=== PATIENT | female | born 1975 | race Caucasian/White ===

== ENCOUNTER 2021-08-08 12:48 | Inpatient (IN) | payer OTHER ==
[2021-08-08 13:46] VITALS: BMI 48.6
[2021-08-08] MEDS ORDERED: BISMUTH SUBSALICYLATE 262 MG/15 ML BTL PO PRN (14:16)
[2021-08-08] MEDS ORDERED: ONDANSETRON *ODT* 4 MG TABLET SL PRN (14:16)
[2021-08-08] MEDS ORDERED: DICYCLOMINE HCL 10 MG CAPSULE PO PRN (14:16)
[2021-08-08] MEDS ORDERED: MAGNESIUM CITRATE 300 ML BOTTLE PO PRN (14:16)
[2021-08-08] MEDS ORDERED: ACETAMINOPHEN 325 MG TABLET (FP) PO PRN (14:16)
[2021-08-08] MEDS ORDERED: MAGNESIUM HYDROX 2400MG/30ML ORAL SUSPENSION 30 ML CUP PO PRN (14:16)
[2021-08-08] MEDS ORDERED: LOPERAMIDE HCL 2 MG CAPSULE PO PRN (14:16)
[2021-08-08] MEDS ORDERED: MAG HYDROX/AL HYDROX/SIMETH 30 ML UNIT-DOSE CUP PO PRN (14:16)
[2021-08-08] MEDS ORDERED: IBUPROFEN 400 MG TABLET (FP) PO PRN (14:16)
[2021-08-08] MEDS ORDERED: BENZOCAINE/MENTHOL (CHLORASEPTIC ) LOZENGE MM PRN (14:16)
[2021-08-08 17:32] LABS: HEMOGLOBIN 12.8 GM/dL (10.7-15.3); MCH 30.7 pg (25.7-33.7); MCHC 33.7 g/dl (32.0-36.0); MEAN CELL VOLUME 91.1 fl (80-96); MEAN PLT VOLUME 9.6 fl (7.5-11.1); PLATELET COUNT 120 10^3/uL (134-434); RBC 4.17 M/mm3 (3.60-5.2); RDW 13.7 % (11.6-15.6); WHITE BLOOD COUNT 4.9 K/mm3 (4.0-10.0)
[2021-08-08 17:45] LABS: CALCIUM 8.9 mg/dL (8.5-10.1)
[2021-08-08 17:46] LABS: BLOOD UREA NITROGEN 14.2 mg/dL (7-18)
[2021-08-08 17:49] LABS: CREATININE 0.6 mg/dL (0.55-1.3)
[2021-08-08 17:50] LABS: BILIRUBIN,TOTAL 0.5 mg/dL (0.2-1); TOT PROT 7.3 g/dl (6.4-8.2)
[2021-08-08] MEDS: diazePAM 5 MG TABLET PO SCH ×2 (17:53→22:23)
[2021-08-08] MEDS: hydrOXYzine PAMOATE 25 MG CAPSULE (FP) PO SCH ×2 (17:53→22:23)
[2021-08-08] MEDS: PRENATAL VITAMINS W/ FOLIC ACID TABLET (FP) PO SCH (17:59)
[2021-08-08] MEDS: MELATONIN 5 MG TABLETS PO SCH (22:23)
[2021-08-08] MEDS: THIAMINE HCL 100 MG TABLET (FP) PO SCH (22:23)
[2021-08-08] MEDS: ACETAMINOPHEN 325 MG TABLET (FP) PO PRN (22:24)
[2021-08-08] MEDS ORDERED: GABAPENTIN 300 MG CAPSULE PO ONE (22:51)
[2021-08-09] MEDS: metFORMIN HCL 500 MG TABLET (FP) PO SCH ×2 (06:51→17:46)
[2021-08-09] MEDS: diazePAM 5 MG TABLET PO SCH ×4 (06:51→22:06)
[2021-08-09] MEDS: hydrOXYzine PAMOATE 25 MG CAPSULE (FP) PO SCH ×5 (06:51→22:05)
[2021-08-09] MEDS: PRENATAL VITAMINS W/ FOLIC ACID TABLET (FP) PO SCH (10:35)
[2021-08-09] MEDS: ACETAMINOPHEN 325 MG TABLET (FP) PO PRN (10:37)
[2021-08-09] MEDS: ATORVASTATIN CA 10 MG TABLET (FP) PO SCH (22:05)
[2021-08-09] MEDS: MELATONIN 5 MG TABLETS PO SCH (22:05)
[2021-08-09] MEDS: THIAMINE HCL 100 MG TABLET (FP) PO SCH (22:05)
[2021-08-09] MEDS: IBUPROFEN 600 MG TABLET (FP) PO PRN (22:08)
[2021-08-10] MEDS: hydrOXYzine PAMOATE 25 MG CAPSULE (FP) PO SCH ×5 (05:49→22:35)
[2021-08-10] MEDS: diazePAM 5 MG TABLET PO SCH ×3 (05:50→22:36)
[2021-08-10] MEDS: metFORMIN HCL 500 MG TABLET (FP) PO SCH ×2 (07:19→18:06)
[2021-08-10] MEDS: METHOCARBAMOL 500 MG TABLET PO PRN ×2 (10:05→18:07)
[2021-08-10] MEDS: PRENATAL VITAMINS W/ FOLIC ACID TABLET (FP) PO SCH (10:05)
[2021-08-10] MEDS: diazePAM 5 MG TABLET PO PRN ×2 (10:07→18:06)
[2021-08-10] MEDS: ACETAMINOPHEN 325 MG TABLET (FP) PO PRN ×2 (10:09→22:37)
[2021-08-10] MEDS ORDERED: GABAPENTIN 300 MG CAPSULE PO SCH (15:15)
[2021-08-10] MEDS: MELATONIN 5 MG TABLETS PO SCH (22:35)
[2021-08-10] MEDS: GABAPENTIN 300 MG CAPSULE PO SCH (22:36)
[2021-08-10] MEDS: ATORVASTATIN CA 10 MG TABLET (FP) PO SCH (22:36)
[2021-08-10] MEDS: THIAMINE HCL 100 MG TABLET (FP) PO SCH (22:36)
[2021-08-11] MEDS: metFORMIN HCL 500 MG TABLET (FP) PO SCH ×2 (06:31→17:43)
[2021-08-11] MEDS: GABAPENTIN 300 MG CAPSULE PO SCH ×3 (06:31→22:21)
[2021-08-11] MEDS: hydrOXYzine PAMOATE 25 MG CAPSULE (FP) PO SCH ×5 (06:31→22:21)
[2021-08-11] MEDS: diazePAM 5 MG TABLET PO SCH ×2 (06:31→17:44)
[2021-08-11] MEDS: ACETAMINOPHEN 325 MG TABLET (FP) PO PRN ×2 (08:08→22:23)
[2021-08-11] MEDS: METHOCARBAMOL 500 MG TABLET PO PRN (10:05)
[2021-08-11] MEDS: diazePAM 5 MG TABLET PO PRN (10:05)
[2021-08-11] MEDS: PRENATAL VITAMINS W/ FOLIC ACID TABLET (FP) PO SCH (10:05)
[2021-08-11] MEDS: THIAMINE HCL 100 MG TABLET (FP) PO SCH (22:21)
[2021-08-11] MEDS: MELATONIN 5 MG TABLETS PO SCH (22:21)
[2021-08-11] MEDS: ATORVASTATIN CA 10 MG TABLET (FP) PO SCH (22:21)
[2021-08-12] MEDS ORDERED: diazePAM 5 MG TABLET PO ONE (06:00)
[2021-08-12] MEDS: GABAPENTIN 300 MG CAPSULE PO SCH (06:02)
[2021-08-12] MEDS: hydrOXYzine PAMOATE 25 MG CAPSULE (FP) PO SCH ×2 (06:02→10:32)
[2021-08-12] MEDS: ACETAMINOPHEN 325 MG TABLET (FP) PO PRN (06:06)
[2021-08-12] MEDS: metFORMIN HCL 500 MG TABLET (FP) PO SCH (06:08)
[2021-08-12 09:40] VITALS: TEMP 97.7
[2021-08-12] MEDS: IBUPROFEN 600 MG TABLET (FP) PO PRN (10:31)
[2021-08-12] MEDS: PRENATAL VITAMINS W/ FOLIC ACID TABLET (FP) PO SCH (10:31)
[2021-08-12 12:59] VITALS: BP 92/59; PULSE 90
== END 2021-08-12 12:45 | disposition home or self-care (01) | DRG 775 ==
LOC: YASAS 12:48 → Y3N 15:02 → Y6N 08-09 17:49
PROVIDERS: ADMIT Allergy & Immunology; ATTEND Surgery
PROC: HZ2ZZZZ Detoxification Services for Substance Abuse Treatment (ICD-10-PCS; principal; 2021-08-08)
DX: F10.230 Alcohol dependence with withdrawal, uncomplicated (principal); F13.232 Sedative, hypnotic or anxiolytic dependence with withdrawal with perceptual disturbance; F19.24 Other psychoactive substance dependence with psychoactive substance-induced mood disorder; F32.A Depression, unspecified; E11.9 Type 2 diabetes mellitus without complications; E78.5 Hyperlipidemia, unspecified; M19.90 Unspecified osteoarthritis, unspecified site; E66.01 Morbid (severe) obesity due to excess calories; Z68.42 Body mass index [BMI] 45.0-49.9, adult; Z87.891 Personal history of nicotine dependence; Z88.8 Allergy status to other drugs, medicaments and biological substances; Z98.84 Bariatric surgery status; Z86.19 Personal history of other infectious and parasitic diseases; Z91.51 Personal history of suicidal behavior; Z56.0 Unemployment, unspecified
CPT/HCPCS: 36415; 80053; 81025; 82962; 85027; 86593; 86780; 93005; 93010; C9803-CS; U0003; U0005

== ENCOUNTER 2021-09-18 13:42 | Inpatient (IN) | payer OTHER ==
[2021-09-18 14:24] VITALS: BMI 52.4
[2021-09-18] MEDS ORDERED: MAGNESIUM HYDROX 2400MG/30ML ORAL SUSPENSION 30 ML CUP PO PRN (15:40)
[2021-09-18] MEDS ORDERED: LOPERAMIDE HCL 2 MG CAPSULE PO PRN (15:40)
[2021-09-18] MEDS ORDERED: NICOTINE 10 MG CARTRIDGE (INHALER) IH PRN (15:40)
[2021-09-18] MEDS ORDERED: BENZOCAINE/MENTHOL (CHLORASEPTIC ) LOZENGE MM PRN (15:40)
[2021-09-18] MEDS ORDERED: ACETAMINOPHEN 325 MG TABLET (FP) PO PRN ×2 (15:40)
[2021-09-18] MEDS ORDERED: BISMUTH SUBSALICYLATE 524 MG/30 ML PO PRN (15:40)
[2021-09-18] MEDS ORDERED: MAGNESIUM CITRATE 300 ML BOTTLE PO PRN (15:40)
[2021-09-18] MEDS ORDERED: ONDANSETRON *ODT* 4 MG TABLET SL PRN (15:40)
[2021-09-18] MEDS ORDERED: MAG HYDROX/AL HYDROX/SIMETH 30 ML UNIT-DOSE CUP PO PRN (15:40)
[2021-09-18] MEDS ORDERED: IBUPROFEN 600 MG TABLET (FP) PO PRN (15:40)
[2021-09-18] MEDS ORDERED: IBUPROFEN 400 MG TABLET (FP) PO PRN (15:40)
[2021-09-18] MEDS ORDERED: DICYCLOMINE HCL 10 MG CAPSULE PO PRN (15:40)
[2021-09-18] MEDS ORDERED: diazePAM 5 MG TABLET PO PRN (15:45)
[2021-09-18] MEDS: hydrOXYzine PAMOATE 25 MG CAPSULE (FP) PO SCH ×2 (17:07→22:20)
[2021-09-18] MEDS: metFORMIN HCL 500 MG TABLET (FP) PO SCH (17:07)
[2021-09-18] MEDS: PRENATAL VITAMINS W/ FOLIC ACID TABLET (FP) PO SCH (17:08)
[2021-09-18] MEDS: ATORVASTATIN CA 40 MG TABLET (FP) PO SCH (22:20)
[2021-09-18] MEDS: GABAPENTIN 300 MG CAPSULE PO SCH (22:20)
[2021-09-18] MEDS: MELATONIN 5 MG TABLETS PO SCH (22:21)
[2021-09-18] MEDS: THIAMINE HCL 100 MG TABLET (FP) PO SCH (22:21)
[2021-09-18] MEDS: diazePAM 5 MG TABLET PO SCH (22:23)
[2021-09-19] MEDS: GABAPENTIN 300 MG CAPSULE PO SCH ×3 (06:00→22:21)
[2021-09-19] MEDS: hydrOXYzine PAMOATE 25 MG CAPSULE (FP) PO SCH ×5 (06:00→22:22)
[2021-09-19] MEDS: metFORMIN HCL 500 MG TABLET (FP) PO SCH ×2 (06:00→17:00)
[2021-09-19] MEDS: diazePAM 5 MG TABLET PO SCH ×4 (06:00→22:21)
[2021-09-19] MEDS: PATIENT'S OWN MEDICATION (NON-FORMULARY) (Meloxicam [Meloxicam] 15 MG Tablet) PO SCH ×2 (09:56→10:27)
[2021-09-19] MEDS: METHOCARBAMOL 500 MG TABLET PO PRN ×2 (10:04→22:21)
[2021-09-19] MEDS: PRENATAL VITAMINS W/ FOLIC ACID TABLET (FP) PO SCH (10:04)
[2021-09-19 11:09] LABS: CALCIUM 8.5 mg/dL (8.5-10.1)
[2021-09-19 11:10] LABS: HEMATOCRIT 35.6 % (32.4-45.2); HEMOGLOBIN 12.1 GM/dL (10.7-15.3); MCH 30.6 pg (25.7-33.7); MCHC 34.1 g/dl (32.0-36.0); MEAN CELL VOLUME 89.7 fl (80-96); MEAN PLT VOLUME 9.9 fl (7.5-11.1); PLATELET COUNT 115 10^3/uL (134-434); RBC 3.97 M/mm3 (3.60-5.2)
[2021-09-19 11:11] LABS: ALBUMIN 3.4 g/dl (3.4-5.0); BLOOD UREA NITROGEN 14.4 mg/dL (7-18)
[2021-09-19 11:13] LABS: CREATININE 0.6 mg/dL (0.55-1.3)
[2021-09-19 11:15] LABS: BILIRUBIN,TOTAL 0.6 mg/dL (0.2-1); TOT PROT 6.4 g/dl (6.4-8.2)
[2021-09-19 14:28] LABS: HIV INTERPRETATION NEGATIVE (NEGATIVE)
[2021-09-19] MEDS: THIAMINE HCL 100 MG TABLET (FP) PO SCH (22:21)
[2021-09-19] MEDS: MELATONIN 5 MG TABLETS PO SCH (22:21)
[2021-09-19] MEDS: ATORVASTATIN CA 40 MG TABLET (FP) PO SCH (22:21)
[2021-09-20] MEDS ORDERED: diazePAM 5 MG TABLET PO SCH (06:00)
[2021-09-20] MEDS: hydrOXYzine PAMOATE 25 MG CAPSULE (FP) PO SCH ×2 (06:07→10:14)
[2021-09-20] MEDS: GABAPENTIN 300 MG CAPSULE PO SCH (06:07)
[2021-09-20] MEDS: metFORMIN HCL 500 MG TABLET (FP) PO SCH (06:54)
[2021-09-20 09:25] VITALS: BP 102/60; PULSE 81; RESP 18; TEMP 96.9
[2021-09-20] MEDS: PRENATAL VITAMINS W/ FOLIC ACID TABLET (FP) PO SCH (10:15)
[2021-09-20] MEDS: PATIENT'S OWN MEDICATION (NON-FORMULARY) (Meloxicam [Meloxicam] 15 MG Tablet) PO SCH (10:15)
[2021-09-21] MEDS ORDERED: diazePAM 5 MG TABLET PO SCH (06:00)
[2021-09-22] MEDS ORDERED: diazePAM 5 MG TABLET PO ONE (06:00)
== END 2021-09-20 12:43 | disposition left against medical advice (07) | DRG 770 ==
LOC: YASAS 13:42 → Y3N 15:02
PROVIDERS: ADMIT Allergy & Immunology; ATTEND Psychiatry & Neurology Pain Medicine
PROC: HZ2ZZZZ Detoxification Services for Substance Abuse Treatment (ICD-10-PCS; principal; 2021-09-18)
DX: F10.230 Alcohol dependence with withdrawal, uncomplicated (principal); F13.230 Sedative, hypnotic or anxiolytic dependence with withdrawal, uncomplicated; E11.9 Type 2 diabetes mellitus without complications; E78.5 Hyperlipidemia, unspecified; M19.90 Unspecified osteoarthritis, unspecified site; E66.01 Morbid (severe) obesity due to excess calories; Z68.43 Body mass index [BMI] 50.0-59.9, adult; Z87.891 Personal history of nicotine dependence; Z88.8 Allergy status to other drugs, medicaments and biological substances; Z86.11 Personal history of tuberculosis; Z86.59 Personal history of other mental and behavioral disorders; Z79.84 Long term (current) use of oral hypoglycemic drugs
CPT/HCPCS: 36415; 80053; 81025; 82962; 85027; 86593; 86780; 87389; 87811; C9803-CS; U0003; U0005

== ENCOUNTER 2023-02-28 19:22 | Inpatient (IN) | payer OTHER ==
[2023-02-28 20:14] VITALS: BMI 50.5
[2023-02-28] MEDS ORDERED: BISMUTH SUBSALICYLATE 524 MG/30 ML PO PRN (20:47)
[2023-02-28] MEDS ORDERED: guaiFENesin 600 MG TABLET.ER (FP) PO PRN (20:47)
[2023-02-28] MEDS ORDERED: NALOXONE HCL 0.4 MG/ML VIAL IM PRN (20:47)
[2023-02-28] MEDS ORDERED: IBUPROFEN 600 MG TABLET (FP) PO PRN (20:47)
[2023-02-28] MEDS ORDERED: MAGNESIUM HYDROX 2400MG/30ML ORAL SUSPENSION 30 ML CUP PO PRN (20:47)
[2023-02-28] MEDS ORDERED: ONDANSETRON *ODT* 4 MG TABLET SL PRN (20:47)
[2023-02-28] MEDS ORDERED: IBUPROFEN 400 MG TABLET (FP) PO PRN (20:47)
[2023-02-28] MEDS ORDERED: BENZOCAINE/MENTHOL (CHLORASEPTIC ) LOZENGE MM PRN (20:47)
[2023-02-28] MEDS ORDERED: BENZONATATE 200 MG CAPSULE PO PRN (20:47)
[2023-02-28] MEDS ORDERED: NALOXONE HCL (KLOXXADO) 8 MG SPRAY NS PRN (20:47)
[2023-02-28] MEDS ORDERED: LOPERAMIDE HCL 2 MG CAPSULE PO PRN (20:47)
[2023-02-28] MEDS ORDERED: MAG HYDROX/AL HYDROX/SIMETH 30 ML UNIT-DOSE CUP PO PRN (20:47)
[2023-02-28] MEDS ORDERED: POLYETHYLENE GLYCOL (HEALTHYLAX) 3350 17 GM PACKET PO PRN (20:47)
[2023-02-28] MEDS ORDERED: MELATONIN 5 MG TABLETS PO SCH (22:00)
[2023-02-28] MEDS: THIAMINE HCL 100 MG TABLET (FP) PO SCH (23:23)
[2023-02-28] MEDS: diazePAM 5 MG TABLET PO SCH (23:23)
[2023-03-01] MEDS: diazePAM 5 MG TABLET PO SCH ×4 (05:56→22:13)
[2023-03-01] MEDS: metFORMIN HCL 500 MG TABLET (FP) PO SCH ×2 (07:51→17:22)
[2023-03-01] MEDS: PRENATAL VITAMINS W/ FOLIC ACID TABLET (FP) PO SCH (10:07)
[2023-03-01 10:43] LABS: CHLORIDE 109 mmol/L (98-107); POTASSIUM 3.6 mmol/L (3.5-5.1); SODIUM 141 mmol/L (136-145)
[2023-03-01 10:47] LABS: HEMATOCRIT 36.7 % (32.4-45.2); HEMOGLOBIN 12.2 GM/dL (10.7-15.3); MCHC 33.2 g/dl (32.0-36.0); MEAN CELL VOLUME 90.2 fl (80-96); PLATELET COUNT 96 10^3/uL (134-434); RBC 4.07 M/mm3 (3.60-5.2); RDW 13.9 % (11.6-15.6); WHITE BLOOD COUNT 4.3 K/mm3 (4.0-10.0)
[2023-03-01 10:50] LABS: CALCIUM 8.4 mg/dL (8.5-10.1)
[2023-03-01 10:51] LABS: ALBUMIN 3.4 g/dl (3.4-5.0); ANION GAP 6 mmol/L (4-13); BLOOD UREA NITROGEN 13.5 mg/dL (7-18); CO2 27 mmol/L (21-32)
[2023-03-01 10:54] LABS: ALK PHOS 59 U/L (45-117); CREATININE 0.6 mg/dL (0.55-1.3); SGOT/AST 17 U/L (15-37)
[2023-03-01 10:55] LABS: SGPT/ALT 21 U/L (13-61); TOT PROT 6.3 g/dl (6.4-8.2)
[2023-03-01 10:57] LABS: BILIRUBIN,TOTAL 0.9 mg/dL (0.2-1)
[2023-03-01 11:04] LABS: GLUCOSE,RANDOM 87 mg/dL (74-106)
[2023-03-01] MEDS: GABAPENTIN 400 MG CAPSULE PO SCH ×2 (14:54→22:11)
[2023-03-01] MEDS: hydrOXYzine PAMOATE 25 MG CAPSULE (FP) PO PRN (17:23)
[2023-03-01] MEDS ORDERED: hydrOXYzine PAMOATE 50 MG CAPSULE (FP) PO SCH (22:00)
[2023-03-01] MEDS: THIAMINE HCL 100 MG TABLET (FP) PO SCH (22:11)
[2023-03-01] MEDS: METHOCARBAMOL 500 MG TABLET PO PRN (22:11)
[2023-03-01] MEDS: ATORVASTATIN CA 40 MG TABLET (FP) PO SCH (22:12)
[2023-03-02] MEDS: GABAPENTIN 400 MG CAPSULE PO SCH ×3 (05:46→22:07)
[2023-03-02] MEDS: diazePAM 5 MG TABLET PO SCH ×3 (05:47→22:07)
[2023-03-02] MEDS: ACETAMINOPHEN 325 MG TABLET (FP) PO PRN ×2 (05:58→14:07)
[2023-03-02] MEDS: metFORMIN HCL 500 MG TABLET (FP) PO SCH ×2 (06:03→16:18)
[2023-03-02] MEDS ORDERED: OZEMPIC 1 MG SQ SCH (10:00)
[2023-03-02] MEDS: PRENATAL VITAMINS W/ FOLIC ACID TABLET (FP) PO SCH (10:01)
[2023-03-02] MEDS: MELOXICAM 15 MG TABLET PO SCH (10:01)
[2023-03-02] MEDS: diazePAM 5 MG TABLET PO PRN (18:19)
[2023-03-02] MEDS: ATORVASTATIN CA 40 MG TABLET (FP) PO SCH (22:07)
[2023-03-02] MEDS: THIAMINE HCL 100 MG TABLET (FP) PO SCH (22:07)
[2023-03-02] MEDS: hydrOXYzine PAMOATE 25 MG CAPSULE (FP) PO PRN (22:08)
[2023-03-03] MEDS: GABAPENTIN 400 MG CAPSULE PO SCH ×3 (05:47→22:03)
[2023-03-03] MEDS: diazePAM 5 MG TABLET PO SCH ×2 (05:47→18:05)
[2023-03-03] MEDS: ACETAMINOPHEN 325 MG TABLET (FP) PO PRN (05:49)
[2023-03-03] MEDS: metFORMIN HCL 500 MG TABLET (FP) PO SCH ×2 (07:07→17:04)
[2023-03-03] MEDS: PRENATAL VITAMINS W/ FOLIC ACID TABLET (FP) PO SCH (09:24)
[2023-03-03] MEDS: MELOXICAM 15 MG TABLET PO SCH (09:24)
[2023-03-03] MEDS: diazePAM 5 MG TABLET PO PRN ×2 (09:25→22:06)
[2023-03-03] MEDS: COLLOIDAL OATMEAL 1 EACH PACKET TP SCH (14:16)
[2023-03-03] MEDS: METHOCARBAMOL 500 MG TABLET PO PRN (17:06)
[2023-03-03] MEDS: THIAMINE HCL 100 MG TABLET (FP) PO SCH (22:03)
[2023-03-03] MEDS: hydrOXYzine PAMOATE 25 MG CAPSULE (FP) PO PRN (22:03)
[2023-03-03] MEDS: ATORVASTATIN CA 40 MG TABLET (FP) PO SCH (22:03)
[2023-03-04] MEDS: GABAPENTIN 400 MG CAPSULE PO SCH (05:37)
[2023-03-04] MEDS ORDERED: diazePAM 5 MG TABLET PO ONE (06:00)
[2023-03-04] MEDS: metFORMIN HCL 500 MG TABLET (FP) PO SCH (06:06)
[2023-03-04] MEDS: PRENATAL VITAMINS W/ FOLIC ACID TABLET (FP) PO SCH (09:09)
[2023-03-04] MEDS: MELOXICAM 15 MG TABLET PO SCH (09:12)
[2023-03-04] MEDS: COLLOIDAL OATMEAL 1 EACH PACKET TP SCH (09:12)
[2023-03-04 09:22] VITALS: BP 130/82; PULSE 90; RESP 18; TEMP 97.5
== END 2023-03-04 10:00 | disposition home or self-care (01) | DRG 775 ==
LOC: YASAS 19:22 → Y6N 23:15
PROVIDERS: ADMIT Allergy & Immunology; ATTEND Allergy & Immunology
PROC: HZ2ZZZZ Detoxification Services for Substance Abuse Treatment (ICD-10-PCS; principal; 2023-02-28)
DX: F10.230 Alcohol dependence with withdrawal, uncomplicated (principal); F13.232 Sedative, hypnotic or anxiolytic dependence with withdrawal with perceptual disturbance; F10.282 Alcohol dependence with alcohol-induced sleep disorder; F10.280 Alcohol dependence with alcohol-induced anxiety disorder; F10.24 Alcohol dependence with alcohol-induced mood disorder; E78.5 Hyperlipidemia, unspecified; E11.59 Type 2 diabetes mellitus with other circulatory complications; Z79.84 Long term (current) use of oral hypoglycemic drugs; E66.01 Morbid (severe) obesity due to excess calories; Z68.43 Body mass index [BMI] 50.0-59.9, adult; Z86.19 Personal history of other infectious and parasitic diseases; Z88.8 Allergy status to other drugs, medicaments and biological substances
CPT/HCPCS: 36415; 80053; 80307; 82962; 85027; 86593; 86780; 87635; 93005; 93010